=== PATIENT | female | born 1960 | race Hispanic/Latino ===

== ENCOUNTER 2017-12-20 12:37 | Outpatient (CLI) | payer BC ==
--- NOTE | 2017-12-25 11:57 | Magnetic Resonance Report ---
BILATERAL BREAST MRI WITHOUT AND WITH CONTRAST: 12/20/17 12:37:00 CLINICAL: Newly diagnosed right breast cancer. COMPARISON:Recent [facility] mammograms and right breast ultrasound. TECHNIQUE: Axial 1.0-mm T1 without, axial high resolution 2.0-mm T2 and axial 1.0-mm dynamic Vibrant high-resolution postcontrast T1 fat saturation sequences on a 1.5 [place] magnet. The examination was performed with an 8 channel dedicated [place] breast coil. Post processing with CAD and subtraction was performed on an [employer] workstation. 17.0 cc of Multihance was injected without incident via a right antecubital vein 22-gauge INT for the contrast portion of the exam. Consent was obtained prior to the administration of the contrast. FINDINGS: Right: Minimal background parenchymal enhancement. The known cancer is an irregular enhancing mass with a biopsy clip at 10 o'clock 8.4 cm from the nipple and 5.3 cm from the chest wall. It measures 2.7 x 1.8 x 2.0 cm and demonstrates heterogeneous enhancement with mixed kinetics, 206% peak enhancement and 12% type III washout. Suspicious irregular focal non-Mass enhancement in the upper outer quadrant 6.6 cm from the nipple and 6.8 cm from the chest wall measures 6.8 x 4.9 x 4.3 mm. It demonstrates heterogeneous enhancement with mixed kinetics, 231% peak enhancement and 23% type III washout. Oval focal non-Mass enhancement in the lower outer quadrant 4.4 cm from the nipple and 8.6 cm from the chest wall measures 10.0 x 6.0 x 3.0 mm. It demonstrates heterogeneous enhancement with mixed kinetics, 122% peak enhancement, 89% type I persistent and 11% type II plateau waveforms. No other mass or suspicious enhancement of the right breast. No suspicious right axillary or right internal mammary lymph nodes. Left: Minimal background parenchymal enhancement. No mass or suspicious enhancement of the left breast. No suspicious left axillary or left internal mammary lymph nodes. IMPRESSION: 1. Known 2.7 x 1.8 x 2.0 cm right breast cancer at 10 o'clock 8.4 cm from the nipple. 2. Suspicious focal non-Mass enhancement in the same quadrant of the right breast and mildly suspicious focal non-Mass enhancement in the lower outer quadrant of the right breast. Neither of these lesions have a mammographic correlate and both of these lesions would be amenable to MRI guided needle biopsy. 3. No suspicious lymph nodes. 4. Negative left breast. RIGHT BI-RADS 6 -- Known Cancer LEFT BI-RADS 1 -- Negative
== END 2017-12-20 12:38 | disposition home or self-care (01) ==
LOC: SPVIMAG 12:37
PROVIDERS: ATTEND Surgery
DX: C50.211 Malignant neoplasm of upper-inner quadrant of right female breast (principal)
CPT/HCPCS: A9577; C8908; 77059